=== PATIENT | female | born 1965 | race African-American/Black ===

== ENCOUNTER 2017-03-28 08:43 | Emergency (ER) | payer MEDICAID, OTHER ==
[~2017-03-28] VITALS: Ht 170.2 cm; Wt 68.9 kg
[2017-03-28 09:10] VITALS: BP 126/93
== END 2017-03-28 10:10 | disposition home or self-care (01) ==
LOC: ER 08:43
DX: S70.02XA Contusion of left hip, initial encounter (principal); V49.49XA Driver injured in collision with other motor vehicles in traffic accident, initial encounter; Y93.89 Activity, other specified; Y99.8 Other external cause status; Y92.410 Unspecified street and highway as the place of occurrence of the external cause

== ENCOUNTER 2018-03-11 08:17 | Emergency (ER) | payer MEDICAID ==
[~2018-03-11] VITALS: Ht 170.2 cm; Wt 65.8 kg
[2018-03-11] MEDS ORDERED: KETOROLAC TROMETH 60MG/2ML VIAL IM ONE (08:30)
[2018-03-11 08:31] VITALS: BP 160/85
== END 2018-03-11 09:41 | disposition home or self-care (01) ==
LOC: ER 08:17
DX: M54.5 Low back pain (principal); M79.652 Pain in left thigh; Z88.6 Allergy status to analgesic agent; V43.52XA Car driver injured in collision with other type car in traffic accident, initial encounter; Y93.89 Activity, other specified; Y92.488 Other paved roadways as the place of occurrence of the external cause; Y99.8 Other external cause status
CPT/HCPCS: 72110; 96372; 99284; J1885